=== PATIENT | female | born 1995 | race African-American/Black ===

== ENCOUNTER 2022-07-22 11:11 | Emergency (ER) | payer OTHER ==
[2022-07-22 11:44] VITALS: BP 150/82; PULSE 78; RESP 19; TEMP 98.7; BMI 69.4
[2022-07-22] MEDS ORDERED: ACETAMINOPHEN 1000 MG/100 ML BAG IVPB ONE (12:25)
[2022-07-22] MEDS ORDERED: SODIUM CHLORIDE 0.9% 500 ML INFUS.BAG IV ONE (12:25)
[2022-07-22] MEDS ORDERED: ONDANSETRON 4 MG/2 ML VIAL IVPUSH ONE (12:42)
[2022-07-22] MEDS ORDERED: ACETAMINOPHEN INJECTION 100 ML IVPB ONE (12:51)
[2022-07-22] MEDS ORDERED: ONDANSETRON 4 MG/2 ML VIAL ONE (12:51)
[2022-07-22 13:09] LABS: BASO % 0.4 % (0-2.0); EOS % 0.7 % (0-4.5); HEMATOCRIT 35.1 % (32.4-45.2); HEMOGLOBIN 11.6 GM/dL (10.7-15.3); MCH 25.5 pg (25.7-33.7); MCHC 32.9 g/dl (32.0-36.0); MEAN CELL VOLUME 77.3 fl (80-96); MEAN PLT VOLUME 8.5 fl (7.5-11.1); NEUT % 60.9 % (42.8-82.8); PLATELET COUNT 293 10^3/uL (134-434); RBC 4.54 M/mm3 (3.60-5.2); RDW 16.5 % (11.6-15.6); WHITE BLOOD COUNT 8.6 K/mm3 (4.0-10.0)
[2022-07-22 13:29] LABS: CHLORIDE 100 mmol/L (98-107); SODIUM 135 mmol/L (136-145)
[2022-07-22 13:33] LABS: ALBUMIN 3.4 g/dl (3.4-5.0); ANION GAP 7 MMOL/L (8-16); BLOOD UREA NITROGEN 5.7 mg/dL (7-18); CALCIUM 10.6 mg/dL (8.5-10.1); CO2 28 mmol/L (21-32); GLUCOSE,RANDOM 92 mg/dL (74-106)
[2022-07-22 13:34] LABS: MAGNESIUM 1.7 mg/dL (1.8-2.4)
[2022-07-22 13:36] LABS: CREATININE 0.6 mg/dL (0.55-1.3); SGOT/AST < 3 U/L (15-37); SGPT/ALT 18 U/L (13-61)
[2022-07-22 13:38] LABS: BILIRUBIN,TOTAL 0.4 mg/dL (0.2-1); TOT PROT 7.6 g/dl (6.4-8.2)
[2022-07-22 13:39] LABS: ALK PHOS 66 U/L (45-117)
== END 2022-07-22 17:00 | disposition home or self-care (01) ==
LOC: JER 11:11
PROC: 3E033NZ Introduction of Analgesics, Hypnotics, Sedatives into Peripheral Vein, Percutaneous Approach (ICD-10-PCS; principal; 2022-07-22)
PROC: 3E033GC Introduction of Other Therapeutic Substance into Peripheral Vein, Percutaneous Approach (ICD-10-PCS; 2022-07-22)
DX: O16.1 Unspecified maternal hypertension, first trimester (principal); O21.9 Vomiting of pregnancy, unspecified; O99.351 Diseases of the nervous system complicating pregnancy, first trimester; R51.9 Headache, unspecified; Z3A.12 12 weeks gestation of pregnancy
CPT/HCPCS: 36415; 80053; 83735; 85025; 99284-25

== ENCOUNTER 2023-06-17 23:27 | Emergency (ER) | payer OTHER ==
[2023-06-17 23:40] VITALS: BMI 69.9
[2023-06-17] MEDS ORDERED: KETOROLAC TROMETHAMINE 30 MG/1 ML VIAL IM ONE (23:48)
[2023-06-17] MEDS ORDERED: HYDROCHLOROTHIAZIDE 25 MG TABLET (FP) ONE (23:56)
[2023-06-17] MEDS ORDERED: KETOROLAC TROMETHAMINE 30 MG/1 ML VIAL ONE (23:56)
[2023-06-18] MEDS ORDERED: IBUPROFEN 600 MG TABLET (FP) PO ONE (00:07)
[2023-06-18] MEDS: HYDROCHLOROTHIAZIDE 25 MG TABLET (FP) PO ONE (00:27)
[2023-06-18] MEDS: IBUPROFEN 600 MG TABLET (FP) PO ONE (00:27)
[2023-06-18 00:40] LABS: URINE APPEARANCE CLEAR; URINE BILIRUBIN NEGATIVE (NEGATIVE); URINE COLOR YELLOW; URINE GLUCOSE (UA) NEGATIVE (NEGATIVE); URINE KETONE 2+ (NEGATIVE); URINE LEUK ESTERASE NEGATIVE (NEGATIVE); URINE NITRITE NEGATIVE (NEGATIVE); URINE PROTEIN NEGATIVE (NEGATIVE)
[2023-06-18 00:43] LABS: HCG,QUALITATIVE URINE Negative
[2023-06-18 01:26] VITALS: BP 146/94; PULSE 92; RESP 20; TEMP 98.6
[2023-06-18] MEDS ORDERED: HYDROCHLOROTHIAZIDE 12.5 MG CAPSULE (FP) PO ONE (23:42)
== END 2023-06-18 04:46 | disposition home or self-care (01) ==
LOC: JER 23:27
DX: I10 Essential (primary) hypertension (principal); R51.9 Headache, unspecified; H53.71 Glare sensitivity
CPT/HCPCS: 81003; 84703; 87086; 93005; 93010; 99284-25

== ENCOUNTER 2023-06-19 20:47 | Emergency (ER) | payer OTHER ==
[2023-06-19 20:56] VITALS: BP 148/92; PULSE 106; RESP 20; TEMP 99; BMI 67.8
== END 2023-06-20 01:24 | disposition home or self-care (01) ==
LOC: JER 20:47
PROC: 0H98XZZ Drainage of Buttock Skin, External Approach (ICD-10-PCS; principal; 2023-06-19)
DX: L02.31 Cutaneous abscess of buttock (principal)
CPT/HCPCS: 99283-25

== ENCOUNTER 2023-06-23 08:49 | Emergency (ER) | payer OTHER ==
[2023-06-23 08:58] VITALS: BP 148/79; PULSE 99; RESP 20; TEMP 98.5; BMI 64.5
[2023-06-23] MEDS ORDERED: ACETAMINOPHEN 500 MG TABLET (FP) ONE (10:42)
[2023-06-23] MEDS: ACETAMINOPHEN 500 MG TABLET (FP) PO ONE (10:43)
== END 2023-06-23 12:23 | disposition home or self-care (01) ==
LOC: JERFT 08:49
DX: L02.416 Cutaneous abscess of left lower limb (principal)
CPT/HCPCS: 99283-25

== ENCOUNTER 2023-08-03 17:21 | Emergency (ER) | payer OTHER ==
[2023-08-03 17:26] VITALS: TEMP 98.5; BMI 64.3
[2023-08-03] MEDS ORDERED: ONDANSETRON *ODT* 4 MG TABLET ONE (19:19)
[2023-08-03] MEDS: ONDANSETRON *ODT* 4 MG TABLET SL ONE (19:34)
[2023-08-03] MEDS: morphine CARPU-JECT 2 MG/1 ML DISP.SYRIN IM ONE (19:34)
[2023-08-03] MEDS ORDERED: LIDOCAINE 2%/EPINEPHRINE 1:100000 (50 ML MD VIAL) INF ONE (20:10)
[2023-08-03] MEDS ORDERED: LIDOCAINE 1%/EPI 1:100000 (20 ML MULTI DOSE VIAL) ONE (20:16)
[2023-08-03] MEDS: LIDOCAINE 1%/EPI 1:100000 (50 ML MULTI DOSE VIAL) INF ONE (20:23)
[2023-08-03] MEDS ORDERED: SULFAMETHOXAZOLE/TRIMETHOPRIM 800MG/160MG D.S. TABLET ONE (21:47)
[2023-08-03] MEDS: SULFAMETHOXAZOLE/TRIMETHOPRIM 800MG/160MG D.S. TABLET PO ONE (21:57)
[2023-08-03 22:03] VITALS: BP 144/85; PULSE 92; RESP 20
[2023-08-03] MEDS ORDERED: ACETAMINOPHEN 325 MG TABLET (FP) ONE (22:05)
[2023-08-03] MEDS: ACETAMINOPHEN 325 MG TABLET (FP) PO ONE (22:07)
== END 2023-08-03 22:30 | disposition home or self-care (01) ==
LOC: JER 17:21 → JERFT 17:21 → JER 22:30
PROC: 3E023NZ Introduction of Analgesics, Hypnotics, Sedatives into Muscle, Percutaneous Approach (ICD-10-PCS; principal; 2023-08-03)
DX: L02.211 Cutaneous abscess of abdominal wall (principal); R10.30 Lower abdominal pain, unspecified; R19.09 Other intra-abdominal and pelvic swelling, mass and lump
CPT/HCPCS: 87070; 87076; 87205; 99284-25

== ENCOUNTER 2023-08-08 13:16 | Emergency (ER) | payer OTHER ==
[2023-08-08] MEDS ORDERED: MECLIZINE HCL 25 MG TABLET (FP) ONE (14:15)
[2023-08-08] MEDS ORDERED: METOCLOPRAMIDE HCL 10 MG TABLET (FP) PO ONE (14:15)
[2023-08-08] MEDS: MECLIZINE HCL 25 MG TABLET (FP) PO ONE (14:25)
[2023-08-08] MEDS: METOCLOPRAMIDE HCL 10 MG TABLET (FP) PO ONE (14:25)
[2023-08-08 14:52] VITALS: BP 142/80; PULSE 85; RESP 18; TEMP 98.7; BMI 64.2
[2023-08-08] MEDS ORDERED: ACETAMINOPHEN 500 MG TABLET (FP) ONE (15:13)
[2023-08-08] MEDS: ACETAMINOPHEN 500 MG TABLET (FP) PO ONE (15:15)
[2023-08-08] MEDS: SODIUM CHLORIDE 0.9% 500 ML INFUS.BAG IV ONE (16:55)
[2023-08-08 17:03] LABS: BASO % 0.7 % (0-2.0); EOS % 1.2 % (0-4.5); HEMATOCRIT 33.6 % (32.4-45.2); HEMOGLOBIN 10.5 GM/dL (10.7-15.3); LYMPH % 33.3 % (8-40); MCH 24.6 pg (25.7-33.7); MCHC 31.2 g/dl (32.0-36.0); MEAN CELL VOLUME 78.9 fl (80-96); MONO % 3.8 % (3.8-10.2); RBC 4.26 M/mm3 (3.60-5.2); RDW 16.4 % (11.6-15.6)
[2023-08-08 17:11] LABS: WHITE BLOOD COUNT 15.6 K/mm3 (4.0-10.0)
[2023-08-08 17:23] LABS: POTASSIUM 4.7 mmol/L (3.5-5.1)
[2023-08-08 17:26] LABS: CALCIUM 9.3 mg/dL (8.5-10.1)
[2023-08-08 17:28] LABS: ALBUMIN 3.1 g/dl (3.4-5.0); BLOOD UREA NITROGEN 8.9 mg/dL (7-18)
[2023-08-08 17:30] LABS: CREATININE 0.6 mg/dL (0.55-1.3)
[2023-08-08 17:31] LABS: BILIRUBIN,TOTAL 0.3 mg/dL (0.2-1); TOT PROT 7.2 g/dl (6.4-8.2)
[2023-08-08] MEDS ORDERED: diazePAM 2 MG TABLET ONE (17:46)
[2023-08-08] MEDS: diazePAM 2 MG TABLET PO ONE (17:47)
== END 2023-08-08 18:33 | disposition home or self-care (01) ==
LOC: JER 13:16
DX: R51.9 Headache, unspecified (principal); R42 Dizziness and giddiness; I10 Essential (primary) hypertension
CPT/HCPCS: 36415; 70450-TC; 80053; 84703; 85025; 93005; 93010; 99285-25